=== PATIENT | male | born 1970 | race Caucasian/White ===

== ENCOUNTER 2019-05-26 16:01 | Emergency (ER) | payer MEDICAID, SELFPAY ==
[2019-05-26 16:05] VITALS: BP 135/87; PULSE 64; RESP 16; TEMP 36.5; O2SAT 99
--- NOTE | 2019-05-26 16:20 | DI.RAD_ITS ---
EXAM: XR SHOULDER LT COMPLETE 2+V INDICATION: pain, injury. COMPARISON: No exams were available for comparison TECHNIQUE: 2D digital imaging was performed. FINDINGS: There is a surgical neck fracture of the humerus. The fracture extends to the greater tuberosity. Th e soft tissues are unremarkable. IMPRESSION: Acute surgical neck left humeral fracture. The fracture extends to the greater tuberosity.
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
--- NOTE | 2019-05-26 16:40 | DI.VRAD_ITS ---
PROCEDURE INFORMATION: Exam: XR Left Shoulder Exam date and time: 05/26/2019 4:21 PM Clinical history: 49 years old, male; Left; Patient HX: Pain in shoulder, injury TECHNIQUE: Imaging protocol: XR Left shoulder. Views: 2 or more views. COMPARISON: No relevant prior studies available. FINDINGS: Bones/joints: Acute surgical neck fracture in the left humerus. Fracture extends to the greater tuberosity. Soft tissues: Normal. IMPRESSION: Acute surgical neck fracture in the left humerus. Fracture extends to the greater tuberosity. Dictated and Authenticated by: Roland Saldivar MD. Ordering:AMY Wood MD
[2019-05-26] MEDS: Acetaminophen 325 MG TAB 650 MG PO (16:49)
[2019-05-26] MEDS: Ibuprofen 600 MG TAB PO (16:50)
[2019-05-26 17:26] VITALS: BP 135/87; PULSE 64; RESP 16; TEMP 36.5; O2SAT 99
== END 2019-05-26 17:10 | disposition home or self-care (01) ==
LOC: ER 16:47
PROVIDERS: Emergency Provider Student in an Organized Health Care Education/Training Program
DX: S42.232A 3-part fracture of surgical neck of left humerus, initial encounter for closed fracture (principal); X50.1XXA Overexertion from prolonged static or awkward postures, initial encounter
CPT/HCPCS: 29105; 99283; 73030; 99282; L3670

== ENCOUNTER 2019-06-04 10:50 | Outpatient (CLI) | payer MEDICAID, SELFPAY ==
--- NOTE | 2019-06-04 10:17 | DI.RAD_ITS ---
EXAM: XR SHOULDER LT COMPLETE 2+V INDICATION: L prox humerus fx. COMPARISON: XR SHOULDER LT COMPLETE 2+V from 05/26/2019 TECHNIQUE: 2D digital imaging was performed. FINDINGS: There has been no change in alignment of the comminuted fracture involving the proximal left humerus. No new fracture or dislocation is identified.
== END 2019-06-04 11:10 ==
PROVIDERS: Visit Provider Physician Assistant
DX: S42.202A Unspecified fracture of upper end of left humerus, initial encounter for closed fracture (principal)
CPT/HCPCS: 73030

== ENCOUNTER 2019-06-10 10:38 | Outpatient (CLI) | payer MEDICAID, SELFPAY ==
--- NOTE | 2019-06-10 09:03 | DI.RAD_ITS ---
EXAM: XR SHOULDER LT COMPLETE 2+V INDICATION: F/U FRACTURE. COMPARISON: XR SHOULDER LT COMPLETE 2+V from 06/04/2019 TECHNIQUE: 2D digital imaging was performed. FINDINGS: There has been no change in alignment of the comminuted fracture of the humerus. There is no evidenc e of dislocation.
== END 2019-06-10 10:58 ==
PROVIDERS: Visit Provider Student in an Organized Health Care Education/Training Program
DX: S42.292D Other displaced fracture of upper end of left humerus, subsequent encounter for fracture with routine healing (principal)
CPT/HCPCS: 73030

== ENCOUNTER 2019-06-17 07:14 | Outpatient (CLI) | payer MEDICAID, SELFPAY ==
--- NOTE | 2019-06-17 13:41 | DI.RAD_ITS ---
EXAM: XR SHOULDER LT COMPLETE 2+V CLINICAL HISTORY: F/U FRACTURE TECHNIQUE: COMPARISON: XR SHOULDER LT COMPLETE 2+V from 06/10/2019 FINDINGS: Two views were obtained and show previous described fracture proximal humerus with gross change in al ignment of the fracture fragments in comparison with examination of June 10. IMPRESSION:
== END 2019-06-17 07:34 ==
PROVIDERS: Visit Provider Student in an Organized Health Care Education/Training Program
DX: S42.292D Other displaced fracture of upper end of left humerus, subsequent encounter for fracture with routine healing (principal)
CPT/HCPCS: 73030